=== PATIENT | female | born 1975 | race Caucasian/White ===

== ENCOUNTER → 2020-11-20 09:23 | Outpatient (BNVA) | payer MEDICARE, MEDICAID, SELFPAY | PROVIDERS: Visit Provider Specialist | DX: M25.539 Pain in unspecified wrist (principal); S52.591A Other fractures of lower end of right radius, initial encounter for closed fracture; S52.611A Displaced fracture of right ulna styloid process, initial encounter for closed fracture; X58.XXXA Exposure to other specified factors, initial encounter | CPT/HCPCS: 73110; 87635 ==

== ENCOUNTER 2020-11-21 13:58 | Day surgery (SDC) | payer MEDICARE, MEDICAID, SELFPAY ==
[2020-11-20 15:17] VITALS: BMI 37.2
[2020-11-21] VITALS (7 sets, daily range): BP systolic 124–148; BP diastolic 75–88; PULSE 69–103; RESP 16–24; TEMP 36.5–36.6; O2SAT 94–97
--- NOTE | 2020-11-21 | SCC_ITS ---
Procedure Done: Open reduction internal fixation right comminuted distal radius fracture with DBM Plus Putty with cancellous bone 67.0 seconds of fluoroscopic guidance, for a cumulative dose of 1.27 mGy, was provided to Dr. Ortega by the radiology department. C-arm images of the RIGHT wrist were saved for the patient's permanent record. [facility]
--- NOTE | 2020-11-21 14:37 | ANES.PREANE2 ---
Pre-Anesthetic Assessment Pre-Anesthetic Assessment: Height/Weight: Height 1.6 m Weight 95.254 kg Preop Diagnosis: Comminuted right distal radius fracture Proposed Procedure: Operation Date: 11/21/20 15:35 Proposed Procedures p ORIF Distal radius with bone grafting S52.509A(Right) - Radha Ortega MD Familial anesthetic complications: None Was Beta Michelle taken within 24 hours: N/A Was Clonidine taken within 24 hours: N/A Last intake: pop-tart at 0700 Social: Social History: No alcohol and No tobacco Comment: former smoker and alchoholic Exam: Pre-Anes Outpt Exam: alert, oriented x 3, clear to auscultation bilaterally and regular rate & rhythm Airway: Cervical ROM: WNL MP: 4 Dentition: False Pulmonary: Pulmonary: Asthma Metabolic: Metabolic: Morbid obesity Musc/skel: Comments: chronic inflammatory demyelinating polyneuropathy - leads to balance issues and numbness and tingling in extremities. Patient was educated that peripheral nerve block in this setting would be associated with higher risk than baseline population of nerve damage. Patient would still like to proceed with nerve block. Anesthetic Plan: ASA status: 3 Anesthesia: General and Regional (specify below) Risk of > 500 ml blood loss (7ml/kg in children): No PFSH Anesthesia PFSH: Social History Smoking and tobacco status: former smoker Second hand smoke exposure: No Alcohol intake: former Data Anesthesia Cardiac Studies: No Data to Display
--- NOTE | 2020-11-21 14:58 | P.HPUD_ITS ---
Surgery/Procedure H&P Update DATE OF PROCEDURE: November 21, 2020 DATE H&P PERFORMED: 11/20/20 H&P UPDATE INFORMATION: I have reviewed H&P completed within last 30 days, I have examined patient prior to procedure, No changes to prior documentation and H&P is in [facility] EMR on date indicated PREOP DIAGNOSIS: Comminuted right distal radius fracture PLANNED PROCEDURE: Operation Date: 11/21/20 15:35 Proposed Procedures p ORIF Distal radius with bone grafting S52.509A(Right) - Radha Ortega MD Related Problem List Diagnoses (1) Closed fracture of distal end of left radius with ulna: Qualifiers: Encounter type: initial encounter Qualified Code(s): S52.502A - Unspecified fracture of the lower end of left radius, initial encounter for closed fracture; S52.602A - Unspecified fracture of lower end of left ulna, initial encounter for closed fracture
[2020-11-21] MEDS: acetaminophen 1,000 MG/100 ML PIGGYBACK 400 MG IV (15:20)
[2020-11-21] MEDS: sodium chloride 0.9% 1,000 ML 30 ML IV (15:25)
--- NOTE | 2020-11-21 15:50 | ANES.PROC ---
Anesthesia Procedures Procedure/Date: 11/21/20 Nerve Block ^: Nerve Block 1: Main Anesthesia: general anesthesia Time Out Performed: Yes Consent: requested by attending/covering physician, from patient, risks and benefits reviewed and patient agrees to proceed Nerve block location: axillary (R + musculocutaneous) Anesthesia monitors applied: pulse oximetry, EKG, BP cuff and oxygen Nerve block position: supine Anesthetic Used: ropivicaine 0.5% and with decadron (4 mg) Amount of anesthesia used (mL): 20 Ultrasound used to: recognize landmarks and visualize and ID brachial plexus Nerve Stimulator Used?: No Interscalene/Femoral BLK: 2 stimuplex 22 g needle used for position and inplane approach, visualize local anesthetic spread and no vascular puncture identified Injection: neg aspiration of heme Patient Tolerated Procedure: well and no complications Complications: none Additional Comments: Patient experienced no paresthesia during nerve block, local pressure at injection site was experienced intermittently, tolerable and minimal discomfort
[2020-11-21 15:57] LABS: OR HCG Qualitative Urine Negative (Negative)
[2020-11-21 16:01] LABS: Basophils % 0.3 %; Eosinophils # 0.1 10^3/uL (0.0-0.8); Eosinophils % 2.5 %; Hematocrit 34.7 % (37.0-47.0); Hemoglobin 10.6 g/dL (11.5-15.3); Lymphocytes # 1.3 10^3/uL (0.8-4.8); Lymphocytes % 37.2 %; Mean Corpuscular HGB Conc 30.5 g/dL (30.0-36.0); Mean Corpuscular Volume 81.8 fL (81-99); Mean Platelet Volume 12.2 fL (7.4-10.4); Monocytes # 0.4 10^3/uL (0.2-0.9); Monocytes % 11.2 %; Neutrophils # 1.75 10^3/uL (1.8-7.7); Neutrophils % 48.8 %; Nucleated Red Blood Cells % 0 %; Platelet Count 145 10^3/cmm (130-400); Red Blood Count 4.24 10^6/uL (4.1-5.3); Red Cell Distribution Width 18.8 % (12.1-15.1); White Blood Count 3.6 10^3/uL (4.0-10.0)
[2020-11-21] MEDS: CELEcoxib 200 mg Capsule 400 MG PO (16:01)
[2020-11-21 16:36] LABS: Alanine Aminotransferase 23 U/L (0-33); Albumin Level 3.9 g/dL (3.5-5.2); Alkaline Phosphatase 89 IU/L (35-105); Blood Urea Nitrogen 5 mg/dL (6-20); Calcium 8.4 mg/dL (8.5-10.5); Carbon Dioxide 28 mmol/L (22-29); Chloride 103 mmol/L (98-107); Globulin 2.7 g/dL (1.3-4.6); Glomerular Filtration Rate 171.1 mL/min (90-130); Glucose 80 mg/dL (65-115); Osmolality Calculated 288 mOsm/kg (285-295); Sodium 141 mmol/L (136-145); Total Bilirubin 0.6 mg/dL (0.15-1.2); Total Protein 6.6 g/dL (6.6-8.7)
[2020-11-21 16:46] LABS: Anion Gap 13.5 (5-19); Aspartate Amino Transferase 50 U/L (0-32); Potassium 3.5 mmol/L (3.5-5.1)
[2020-11-21] MEDS: ceFAZolin 1,000 mg SDV 1000 MG (20:26)
--- NOTE | 2020-11-21 21:11 | P.OP_ITS ---
Operative Report Date of procedure: November 21, 2020 Pre-op Diagnosis: Comminuted right distal radius fracture Post-op diagnosis: same Post-op Findings: Osteopenic bone. Comminuted fracture. Bone defect secondary to impaction Procedure Done: Open reduction internal fixation right comminuted distal radius fracture with DBM Plus Putty with cancellous bone Implants: Mark extra short narrow 3-hole volar radius plate Specimens removed/disposition: None Pathology: none sent Surgeon: Radha Ortega Clinical Document Improvement Educator: [facility] operating room technicians Anesthesia: General (With LMA and regional block, ASA 3) Estimated blood loss (mL): 5 Tourniquet time (min): 59 Tourniquet time: At 250 mmHg IV fluids (mL): 1,100 Urine output (mL): 0 Urine output: No [place] Complications: None Findings: Significant impaction with bone loss distal radius and osteopenic bone Condition: stable Disposition: PACU (Then discharged to home through same day surgery) Brief History: This 45-year-old woman presented after a fall which resulted in a comminuted, impacted, shortened right distal radius fracture. After discussion in the office, recommendation was made to proceed with open reduction internal fi xation. The patient was advised that she would likely need supplemental bone graft secondary to the significant impaction and effective bone loss caused by this. The patient was in agreement. Questions were answered. Consents were signed. Procedure: Patient was seen in the preoperative holding area and rightt arm was marked. Patient was brought to the operating theater and placed on the operating room table. After undergoing adequate general anesthesia per LMA with supplemental regional block, ASA 3, the patient's right upper extremity was prepped and draped in usual fashion utilizing DuraPrep. The arm was draped free. Fluoroscopy was used throughout the surgical procedure. A tourniquet was placed high on the left upper extremity. The arm was exsanguinated. And the tourniquet was elevated to 250 mmHg and total tourniquet time was 59 minutes. A surgical pause was performed. At the time of the surgical pause we identified the site and side of surgery as well as the patient's identity and availability of equipment. We also confirmed appropriate administration of IV antibiotics, Ancef 2 g. Following the above, an incision was made centering over the patient's distal radius fracture with visualization accomplished on fluoroscopy. The incision was continued proximally and distally as necessarily to allow access to the fractur e. Soft tissues were damaged at the time of the fracture, and blunt dissection was used to dissect down onto the radius. Under fluoroscopic guidance, we were able to reduce the fracture anatomically. There was noted to be a large bone defect secondary to the impaction. This was filled with DBM plus putty with cancellous chips. The plate had been chosen preoperatively with visualization of the fracture and the plate. The plate chosen was a 3 hole (extra short) narrow volar distal radius plate. We used a combination of locking and one screw. Fracture reduction and screw lengths were evaluated utilizing fluoroscopy. The fracture essentially was held anatomically with this plate. After irrigation of the wound, attention was directed to closure. Closure was accomplished with 2-0 Monocryl in the subcutaneous tissues. 3-0 Monocryl was used to close the skin. This was followed by Dermabond and Steri-Strips. The patient was then placed in a volar splint. This was wrapped in place with an Robert wrap. The tourniquet was released after 59 minutes at 250 mmHg. The patient will be discharged home to follow-up with me in the office. The procedure was well tolerated without complication. There were no specimens. Associated Problem List Diagnoses (1) Closed fracture of distal end of left radius with ulna: Qualifiers: Encounter type: initial encounter Qualified Code(s): S52.502A - Unspecified fracture of the lower end of left radius, initial encounter for closed fracture; S52.602A - Unspecified fracture of lower end of left ulna, initial encounter for closed fracture
--- NOTE | 2020-11-21 21:18 | XR_ITS ---
WS: [id number] Exam: XR wrist RT min 3V* [id number] Date/Time of Exam: 11/21/2020 9:18 PM Reason For Exam: ORIF RIGHT WRIST Intraoperative C-arm images of the right wrist in the AP and lateral views are submitted for evaluati on. There is volar plate and screw fixation involving a fracture of the distal radius. The fracture is st abilized in excellent alignment for healing. A ulnar styloid fractures again noted. XR/XR wrist RT min 3V* [id number] IMPRESSION: 1. ORIF involving a fracture of the distal radius in excellent position for katlin villavicencio.
--- NOTE | 2020-11-21 21:39 | P.PCN_ITS ---
PACU note PACU note: VSS, Good respiratory effort, report to CONSERVATION OF RESOURCES COMMISSIONER Post-Anesthesia Exam: awake
--- NOTE | 2020-11-21 21:39 | PM.PACU ---
PACU note PACU note: VSS, Good respiratory effort, report to LITIGATION ATTORNEY ASSOCIATE Post-Anesthesia Exam: awake
--- NOTE | 2020-11-21 21:40 | ANE.PACU2 ---
Inpatient post-anesthesia follow up: Airway intact: Yes Vital signs: Temperature 98 F Pulse Rate 102 Respiratory Rate 17 Blood Pressure 146/88 Pulse Oximetry 94 Oxygen Delivery Me thod Simple Mask Oxygen Flow Rate 8 Fraction of Inspir ed Oxygen Hydration adequate: Yes Nausea and vomiting: No Pain level: 2 Mental status: Baseline
== END 2020-11-21 22:22 | disposition home or self-care (01) ==
PROVIDERS: Anesthesiology; Visit Provider Specialist
PROC: (CPT 25609; principal; 2020-11-21 15:15)
DX: S52.571A Other intraarticular fracture of lower end of right radius, initial encounter for closed fracture (principal); W18.30XA Fall on same level, unspecified, initial encounter; E66.01 Morbid (severe) obesity due to excess calories; Z68.37 Body mass index [BMI] 37.0-37.9, adult; Z87.891 Personal history of nicotine dependence
CPT/HCPCS: 25609; 36415; 64417; 73100; 73110; 76000; 76942; 80053; 84703; 85025; 96365; C1713; J0690; J1100; J2704; J2795; J3010; J7030

== ENCOUNTER → 2020-11-29 09:02 | Outpatient (BNVA) | payer MEDICARE, MEDICAID, SELFPAY | PROVIDERS: PCP Family Medicine; Visit Provider Specialist | DX: S52.502A Unspecified fracture of the lower end of left radius, initial encounter for closed fracture (principal); S52.602A Unspecified fracture of lower end of left ulna, initial encounter for closed fracture; Z46.89 Encounter for fitting and adjustment of other specified devices; S52.591D Other fractures of lower end of right radius, subsequent encounter for closed fracture with routine healing; X58.XXXD Exposure to other specified factors, subsequent encounter | CPT/HCPCS: 73110; 97760; L3982 ==

== ENCOUNTER 2020-11-29 10:33 | Outpatient (CLI) | payer MEDICARE, MEDICAID, SELFPAY | END 2020-11-29 10:34 | disposition home or self-care (01) | LOC: SPT 10:35 | PROVIDERS: PCP Family Medicine; Visit Provider Specialist | DX: Z46.89 Encounter for fitting and adjustment of other specified devices (principal); S52.591D Other fractures of lower end of right radius, subsequent encounter for closed fracture with routine healing; X58.XXXD Exposure to other specified factors, subsequent encounter | CPT/HCPCS: 97760; L3982 ==

== ENCOUNTER 2020-12-14 10:48 | Emergency (ER) | payer MEDICARE, MEDICAID, SELFPAY ==
[2020-12-14] VITALS (7 sets, daily range): BP systolic 129–142; BP diastolic 76–90; PULSE 74–83; RESP 12–19; TEMP 36.3; O2SAT 92–93; BMI 38.9
--- NOTE | 2020-12-14 11:17 | XRR_ITS ---
PROCEDURE INFORMATION: Exam: XR Chest Exam date and time: 12/14/2020 11:26 AM Age: 45 years old Clinical indication: Other: Reduced breath sounds; Patient HX: AMS, no chest complaints per patient TECHNIQUE: Imaging protocol: XR of the chest. Views: 1 view. COMPARISON: No relevant prior studies available. FINDINGS: Lungs: Unremarkable. No consolidation. Pleural spaces: Unremarkable. No pleural effusion. No pneumothorax. Heart/Mediastinum: Unremarkable. No cardiomegaly. Bones/joints: Unremarkable. XR/XR chest 1V portable [id number] IMPRESSION: No acute findings.
--- NOTE | 2020-12-14 11:25 | ECG_ITS ---
[facility] Test Date: 2020-12-14 Pat Name: Esha Kruger Department: Room: Gender: Female Reading Professor: : 1975 Requested By: Nathen Lebron Order Number: [id number] Yamini MD: Morenita Benites M.D. Measurements Intervals [place] Rate: 78 P: 62 AL: 176 QRS: 15 QRSD: 90 T: 60 QT: 417 QTc: 478 Interpretive Statements SINUS RHYTHM LOW QRS VOLTAGE IN PRECORDIAL LEADS [QRS DEFLECTION < 1.0 mV IN CHEST LEADS] No previous ECG available for comparison Electronically Signed On 12-14-2020 23:47:18 CDT by Morenita Benites M.D. [email or web address]
[2020-12-14] MEDS: sodium chloride 0.9% 1,000 ML 999 ML IV (11:36)
[2020-12-14 11:40] LABS: Basophils % 0.6 %; Eosinophils % 1.2 %; Hematocrit 36.1 % (37.0-47.0); Hemoglobin 10.8 g/dL (11.5-15.3); Lymphocytes % 28.8 %; Mean Corpuscular HGB Conc 29.9 g/dL (30.0-36.0); Mean Corpuscular Hemoglobin 24.4 pg (28.0-34.0); Mean Corpuscular Volume 81.7 fL (81-99); Mean Platelet Volume 11.6 fL (7.4-10.4); Monocytes # 0.3 10^3/uL (0.2-0.9); Monocytes % 8.2 %; Neutrophils # 2.07 10^3/uL (1.8-7.7); Neutrophils % 60.9 %; Nucleated Red Blood Cells % 0 %; Platelet Count 156 10^3/cmm (130-400); Red Blood Count 4.42 10^6/uL (4.1-5.3); Red Cell Distribution Width 19.5 % (12.1-15.1); White Blood Count 3.4 10^3/uL (4.0-10.0)
[2020-12-14 11:44] LABS: HCG, Serum Qual Negative (Negative)
[2020-12-14 11:54] LABS: Troponin(5th) Baseline 11 ng/L (0-10)
[2020-12-14 11:56] LABS: Alanine Aminotransferase 19 U/L (0-33); Albumin Level 3.4 g/dL (3.5-5.2); Alcohol Level 242 mg/dL (0-10); Alkaline Phosphatase 126 IU/L (35-105); Anion Gap 15.8 (5-19); Aspartate Amino Transferase 39 U/L (0-32); Blood Urea Nitrogen 5 mg/dL (6-20); Calcium 6.2 mg/dL (8.5-10.5); Carbon Dioxide 20 mmol/L (22-29); Chloride 116 mmol/L (98-107); Globulin 2.5 g/dL (1.3-4.6); Glomerular Filtration Rate 238.5 mL/min (90-130); Glucose 85 mg/dL (65-115); Lipase 41 U/L (13-60); Osmolality Calculated 305 mOsm/kg (285-295); Salicylate 1.1 mg/dL (3-10); Sodium 149 mmol/L (136-145); Total Bilirubin 0.3 mg/dL (0.15-1.2); Total Protein 5.9 g/dL (6.6-8.7)
[2020-12-14 12:06] LABS: Acetaminophen < 5.0 ug/mL (10-30); Potassium 2.8 mmol/L (3.5-5.1)
[2020-12-14] MEDS: lidocaine 1% 5 ML in potassium chloride premix 100 ML 25 ML IV (12:36)
[2020-12-14 13:33] LABS: Add Urine Microscopic? NO; Charge for UA Resulting for Rev
[2020-12-14 13:44] LABS: Bilirubin Urine Neg (Negative); Blood Urine Neg (Negative); Glucose Urine UA Norm (Normal); Ketones Urine Negative (Negative); Leukocyte Esterase Urine Negative (Negative); Nitrate Urine Negative (Negative); Protein Urine Neg (Negative); Urine Appearance Clear (CLEAR); Urine Color Yellow (Yellow); Urobilinogen Urine Norm (Negative); pH Urine 5 (5-7)
[2020-12-14 13:51] LABS: Amphetamines Screen Urine Negative (Negative); Barbiturates Screen Urine Negative (Negative); Benzodiazepines Screen Urine Negative (Negative); Cocaine Screen Urine Negative (Negative); Opiate Screen Urine Negative (Negative); PCP Screen Urine Negative (Negative); THC Screen Urine Negative (Negative)
--- NOTE | 2020-12-14 14:41 | ED_ITS ---
HPI - Alcohol General: Chief Complaint: Alcohol Stated Complaint: INTOXICATION/ LETHARGIC Time Seen by Provider: 12/14/20 11:06 History of Present Illness: HPI narrative: The patient is a 45-year-old female with chronic alcoholic who comes to the ER after her father found her passed out in a bathroom. She says this is incorrect he found her in bed. She says that he told her to come to the ER because she had drank half a 1 L bottle of mouthwash. She admits to drinking the mouthwash because she ran out of vodka. She says she has been drinking it over the past couple days. I discussed with her that she should not do that and is potentially lethal. She understands. She says she was not trying to harm herself in any way and denies suicidal and homicidal ideations. She is also not psychotic. She denies tremors and seizures history when she is not drinking. Denies any injuries or pain. MD complaint: alcohol intoxication Chronic alcohol use: Yes Previous visits for alcohol intoxication: No Recent trauma: No Associated symptoms: Reports no associated symptoms; Deny abdominal pain or depression Treatments prior to arrival: none Review of Systems General: Reports: 10 or more systems reviewed and unremarkable except in HPI and below Const: Denies: fatigue Eyes: Denies: change in vision, blurry vision or eye redness ENMT: Denies: throat pain, swelling of lips/tongue, ear or mastoid pain or nasal congestion Card: Denies: chest pain, palpitations, irregular heart rhythm, edema, dyspnea on exertion or orthopnea Resp: Denies: dyspnea, productive cough or non-productive cough GI: Denies: abdominal pain, diarrhea or GI cramping : Denies: flank pain, difficulty voiding, urinary frequency or urinary urgency Musc: Denies: neck pain, back pain, extremity pain, joint pain, joint redness, limited range of motion or muscle weakness Skin/Breast: Denies: rash, pruritus, erythema, skin pain or skin tenderness Neuro: Denies: headache(s), numbness in extremities, weakness in extremities, sensory changes, difficulty walking, dizziness, confusion or Slurred speech present Psych: Denies: anxiety or depression Endo: Denies: polyuria All/Imm: Denies: urticaria, throat swelling or tongue swelling PFSH ED PFSH: Social History Smoking and tobacco status: former smoker Second hand smoke exposure: No Alcohol intake: former Physical Exam Const: COMMON NORMALS: no acute distress, average body habitus, patient oriented x3, no limitations, healthy appearing, alert and well nourished GENERAL APPEARANCE: cooperative, comfortable, well kempt and well developed ORIENTATION/CONSCIOUSNESS: Yes awake, Yes oriented to person, Yes oriented to place and Yes oriented to time HENMT: COMMON NORMALS: normocephalic, external ears normal and Normal external nose present HEAD & SCALP: normal to inspection and normocephalic NOSE: Normal external nose present EXTERNAL EAR: Yes external ears normal MOUTH: Normal oral and palatal mucosa present THROAT: posterior oropharynx normal Eye: COMMON NORMALS: Equal, round and reactive pupils present and EOMs intact bilaterally GENERAL EYE: appearance normal, both eyes and all related structures PUPIL: Yes Equal, round and reactive pupils present Neck/C-Spine: COMMON NORMALS: full ROM, no lymphadenopathy, no meningeal signs and no JVD GENERAL: Yes normal visual inspection Lymph: LYMPHATIC: no lymphadenopathy noted Chest: COMMONS NORMALS: normal inspection of the chest and normal palpation of entire chest wall Resp: COMMON NORMALS: normal respiratory effort, No retractions, No use of accessory muscles, clear to auscultation bilaterally and percussion normal EFFORT & INSPECTION: Yes able to speak in complete sentences AUSCULTATION: clear to auscultation bilaterally PERCUSSION: percussion normal Cardio: COMMON NORMALS: no JVD, regular rate, regular rhythm, S1 normal heart sound present, S2 normal heart sound present and Peripheral pulses 2+ throughout RATE: regular rate RHYTHM: regular rhythm HEART SOUNDS: S1 normal heart sound present and S2 normal heart sound present PERIPHERAL PULSES: Peripheral pulses 2+ throughout GI: COMMON NORMALS: Normal to inspection, nondistended, normoactive bowel sounds present, Soft to palpation, non-tender and no masses INSPECTION: Yes normal to inspection PALPATION: Yes Soft to palpation : COMMON NORMALS: Yes no CVA tenderness BLADDER/KIDNEY EXAM: Yes no CVA tenderness Back/Pelvis: COMMON NORMALS: no CVA tenderness, thoracic and lumbar spine normal to inspection, no thoracic nor lumbar tenderness and thoraco-lumbar ROM normal Extremity: COMMON NORMALS: normal to inspection, full ROM, capillary refill normal, no joint enlargement and no pedal edema GENERAL: Yes normal exam except as noted Neuro: COMMON NORMALS: patient oriented x3, CN's II-XII intact bilaterally, moves all extremities, no focal motor deficits, no sensory deficits noted and gait normal SENSORIUM/ORIENTATION: Yes alert, Yes oriented to person, Yes oriented to place and Yes oriented to time MENINGEAL SIGNS: Yes no meningeal signs Psych: COMMON NORMALS: mental status grossly normal, Normal thought process present, cooperative, normal affect and speech normal APPEARANCE: Yes well kempt ATTITUDE: Yes calm SPEECH: Yes normal speech THOUGHT PROCESS: Normal thought process present Skin: COMMON NORMALS: no rashes or lesions noted GENERAL SKIN EXAM: no rashes or lesions noted Course Vital Signs: Vital signs: Vital Signs Temperature 97.4 F L 12/14/20 10:51 Pulse Rate 82 12/14/20 17:54 Respiratory Rate 19 H 12/14/20 17:54 Blood Pressure 129/86 12/14/20 17:54 Pulse Oximetry 93 12/14/20 17:54 MDM - Alcohol MDM Narrative: Medical decision making narrative: The patient came to the ER intoxicated on alcohol. She says she was in her bed when her father found her, not on the bathroom floor. She admits to drinking mouthwash half a 1 L bottle over the past couple days as she has ran out of vodka. I discussed with her that this is potentially toxic and could kill her. I recommended she never drink mouthwash again and cut back on the alcohol with eventual ceasing of the alcohol as well as seeking alcohol rehab. I also discussed with her her electrolyte abnormalities of low potassium, high sodium, and low white blood cell count. I recommended she get these rechecked in a few days at primary care doctor's office and seek alcohol rehab. ER with worsening symptoms at any time Lab Data: Labs: Lab Results 12/14/20 12/14/20 12/14/20 Range/Units 11:10 11:10 11:10 WBC 3.4 L (4.0-10.0) 10^3/ uL RBC 4.42 (4.1-5.3) 10^6/u L Hgb 10.8 L (11.5-15.3) g/dL Hct 36.1 L (37.0-47.0) % MCV 81.7 (81-99) fL MCH 24.4 L (28.0-34.0) pg MCHC 29.9 L (30.0-36.0) g/dL RDW 19.5 H (12.1-15.1) % Plt Count 156 (130-400) 10^3/c mm MPV 11.6 H (7.4-10.4) fL Neut % (Auto) 60.9 % Lymph % (Auto) 28.8 % [place] % (Auto) 8.2 % Eos % (Auto) 1.2 % Baso % (Auto) 0.6 % Neut # (Auto) 2.07 (1.8-7.7) 10^3/u L Lymph # (Auto) 1.0 (0.8-4.8) 10^3/u L [place] # (Auto) 0.3 (0.2-0.9) 10^3/u L Eos # (Auto) 0.0 (0.0-0.8) 10^3/u L Baso # (Auto) 0.0 (0.0-0.1) 10^3/u L Nucleated RBC % (a uto) 0 % Nucleated RBCs # 0.0 /100WBC Sodium 149 H (136-145) mmol/L Potassium 2.8 L* (3.5-5.1) mmol/L Chloride 116 H (98-107) mmol/L Carbon Dioxide 20 L (22-29) mmol/L Anion Gap 15.8 (5-19) BUN 5 L (6-20) mg/dL Creatinine 0.3 L (0.5-0.9) mg/dL GFR Calculation 238.5 H (90-130) mL/min Glucose 85 (65-115) mg/dL Calculated Osmolal ity 305 H (285-295) mOsm/k g Calcium 6.2 L (8.5-10.5) mg/dL Total Bilirubin 0.3 (0.15-1.2) mg/dL AST 39 H (0-32) U/L ALT 19 (0-33) U/L Alkaline Phosphata se 126 H (35-105) IU/L Troponin T Baselin e (0-10) ng/L Total Protein 5.9 L (6.6-8.7) g/dL Albumin 3.4 L (3.5-5.2) g/dL Globulin 2.5 (1.3-4.6) g/dL Lipase 41 (13-60) U/L HCG, Qual Negative (Negative) Urine Color (Yellow) Urine Appearance (CLEAR) Urine pH (5-7) Ur Specific Gravit y (1.005-1.030) Urine Protein (Negative) Urine Glucose (UA) (Normal) Urine Ketones (Negative) Urine Blood (Negative) Urine Nitrate (Negative) Urine Bilirubin (Negative) Urine Urobilinogen (Negative) mg/dL Ur Leukocyte Isamar ase (Negative) Salicylates 1.1 L (3-10) mg/dL Urine Opiates Scre en (Negative) ng/mL Acetaminophen < 5.0 L (10-30) ug/mL Ur Barbiturates Sc reen (Negative) ng/mL Ur Phencyclidine S crn (Negative) ng/mL Ur Amphetamines Sc reen (Negative) ng/mL U Benzodiazepines Scrn (Negative) ng/mL Urine Cocaine Scre en (Negative) ng/mL U Marijuana (THC) Screen (Negative) ng/mL Ethyl Alcohol 242 H (0-10) mg/dL 12/14/20 12/14/20 12/14/20 Range/Units 11:10 13:30 13:30 WBC (4.0-10.0) 10^3/ uL RBC (4.1-5.3) 10^6/u L Hgb (11.5-15.3) g/dL Hct (37.0-47.0) % MCV (81-99) fL MCH (28.0-34.0) pg MCHC (30.0-36.0) g/dL RDW (12.1-15.1) % Plt Count (130-400) 10^3/c mm MPV (7.4-10.4) fL Neut % (Auto) % Lymph % (Auto) % [place] % (Auto) % Eos % (Auto) % Baso % (Auto) % Neut # (Auto) (1.8-7.7) 10^3/u L Lymph # (Auto) (0.8-4.8) 10^3/u L [place] # (Auto) (0.2-0.9) 10^3/u L Eos # (Auto) (0.0-0.8) 10^3/u L Baso # (Auto) (0.0-0.1) 10^3/u L Nucleated RBC % (a uto) % Nucleated RBCs # /100WBC Sodium (136-145) mmol/L Potassium (3.5-5.1) mmol/L Chloride (98-107) mmol/L Carbon Dioxide (22-29) mmol/L Anion Gap (5-19) BUN (6-20) mg/dL Creatinine (0.5-0.9) mg/dL GFR Calculation (90-130) mL/min Glucose (65-115) mg/dL Calculated Osmolal ity (285-295) mOsm/k g Calcium (8.5-10.5) mg/dL Total Bilirubin (0.15-1.2) mg/dL AST (0-32) U/L ALT (0-33) U/L Alkaline Phosphata se (35-105) IU/L Troponin T Baselin e 11 H (0-10) ng/L Total Protein (6.6-8.7) g/dL Albumin (3.5-5.2) g/dL Globulin (1.3-4.6) g/dL Lipase (13-60) U/L HCG, Qual (Negative) Urine Color Yellow (Yellow) Urine Appearance Clear (CLEAR) Urine pH 5 (5-7) Ur Specific Gravit y 1.020 (1.005-1.030) Urine Protein Neg (Negative) Urine Glucose (UA) Norm (Normal) Urine Ketones Negative (Negative) Urine Blood Neg (Negative) Urine Nitrate Negative (Negative) Urine Bilirubin Neg (Negative) Urine Urobilinogen Norm (Negative) mg/dL Ur Leukocyte Isamar ase Negative (Negative) Salicylates (3-10) mg/dL Urine Opiates Scre en Negative (Negative) ng/mL Acetaminophen (10-30) ug/mL Ur Barbiturates Sc reen Negative (Negative) ng/mL Ur Phencyclidine S crn Negative (Negative) ng/mL Ur Amphetamines Sc reen Negative (Negative) ng/mL U Benzodiazepines Scrn Negative (Negative) ng/mL Urine Cocaine Scre en Negative (Negative) ng/mL U Marijuana (THC) Screen Negative (Negative) ng/mL Ethyl Alcohol (0-10) mg/dL Discharge Plan Discharge Patient Disposition: Home Clinical Impression: Alcoholic intoxication Condition: Stable Prescriptions: New [place]lor-Con M20 20 mEq tablet,ER particles/crystals 20 meq PO QID Qty: 4 RF: 0 No Action pantoprazole 40 mg tablet,delayed release (DR/EC) 40 mg PO QAM RF: 0 furosemide 20 mg tablet 20 mg PO DAILY RF: 0 spironolactone 25 mg tablet 25 mg PO BID RF: 0 folic acid 1 mg tablet 1 mg PO QAM RF: 0 tramadol 50 mg tablet 50 - 100 mg PO Q4H PRN (Reason: Pain) RF: 0 diphenhydramine HCl [Banophen] 25 mg capsule 25 mg PO Q6H PRN (Reason: Allergy Symptoms) RF: 0 alprazolam [Xanax] 0.5 mg tablet 0.5 mg PO Q12H PRN (Reason: Anxiety) RF: 0 albuterol sulfate [ProAir HFA] 90 mcg/actuation HFA aerosol inhaler 2 puff inhalation Q4H PRN (Reason: Shortness Of Breath) RF: 0 mometasone [Nasonex] 50 mcg/actuation spray,non-aerosol 2 spray intranasal DAILY PRN (Reason: Allergy Symptoms) RF: 0 prenat.vits,navdeep,aff-madv-bgozv Tablet 1 tab PO DAILY RF: 0 biotin 10,000 mcg capsule 10,000 mcg PO DAILY RF: 0 escitalopram oxalate [Lexapro] 10 mg tablet 10 mg PO DAILY RF: 0 (DME) FAST FORM COCK UP SPLINT See Rx Instructions .Route .MEDSUPPLY Qty: 1 RF: 0 celecoxib [Celebrex] 200 mg capsule 200 mg PO DAILY Qty: 30 RF: 0 Lasix 40 mg Tablet 40 mg PO BID RF: 0 Claritin 10 mg Tablet 10 mg PO DAILY RF: 0 Zofran 8 mg Tablet 8 mg PO Q8H PRN (Reason: Nausea And Vomiting) RF: 0 Compazine 10 mg Tablet 10 mg PO Q6H PRN (Reason: Nausea And Vomiting) RF: 0 baclofen 10 mg Tablet 10 mg PO TID PRN (Reason: Muscle Spasm) RF: 0 Nexium 40 mg Capsule,Delayed Release(Dr/Ec) 40 mg PO DAILY RF: 0 promethazine 25 mg Tablet 25 mg PO Q6H PRN (Reason: Nausea And Vomiting) RF: 0 Ambien 10 mg Tablet 10 mg PO BEDTIME PRN (Reason: Sleep) RF: 0 Lyrica 300 mg Capsule 300 mg PO BID RF: 0 Discharge Orders: Discharge ED (Routine); Ordered 12/14/20 Ordered By: Nathen Lebron Referrals: Kalpesh Young MD [Primary Care Provider] - Discharge Diet: Advance as tolerated Discharge Activity: Resume usual activity Patient Instructions: Abuse of Alcohol (ED), Opioid Safety Activity Restrictions/Additional Instructions: Please abstain from drinking mouthwash ever again as it is toxic and could potentially kill you. Also cut back on your alcohol intake in general and eventually cease drinking alcohol entirely. Return to the ER with worsening symptoms otherwise follow-up with a primary care physician and seek rehab treatment for alcoholism. I have placed a case management referral to help you get both of these appointments. They should be calling you tomorrow to help schedule them. Drinking has also affected your electrolytes. Your sodium is high, potassium is low and white blood cell count is low. Please get these redrawn at your primary care appointment within the next week. Return to the ER with worsening symptoms. I have attached a prescription for potassium tablets that you can take tomorrow to help correct your potassium. 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
--- NOTE | 2020-12-14 15:10 | PC.PHAR ---
pt states she takes care of her own medications-pt brought in medication bottles-see all pharmacy comments on each rx-pt brought in bottles of out dated medications and states she takes them-pt brought in promethazine not in the pts name-name on bottle was arianna jaime
--- NOTE | 2020-12-15 14:18 | DCPLANNER ---
mds manager had message to speak with patient about a follow up appointment with primary care and alcohol rehab. mds manager called phone number [phone], unable to speak with anyone at this time, and unable to leave a voicemail for patient.
== END 2020-12-14 17:55 | disposition home or self-care (01) ==
PROVIDERS: Emergency Provider Family Medicine; PCP Family Medicine
DX: F10.129 Alcohol abuse with intoxication, unspecified (principal); Y90.8 Blood alcohol level of 240 mg/100 ml or more; Z87.891 Personal history of nicotine dependence; Z79.899 Other long term (current) drug therapy
CPT/HCPCS: 71045; 80053; 80306; 80307; 81003; 83690; 84484; 84703; 85025; 93005; 96365; 96366; 99284; J3480; J7030

== ENCOUNTER → 2020-12-20 09:13 | Outpatient (BNVA) | payer MEDICARE, MEDICAID, SELFPAY | PROVIDERS: PCP Family Medicine; Visit Provider Specialist | DX: S52.502A Unspecified fracture of the lower end of left radius, initial encounter for closed fracture (principal); S52.602A Unspecified fracture of lower end of left ulna, initial encounter for closed fracture; X58.XXXA Exposure to other specified factors, initial encounter | CPT/HCPCS: 73110 ==

== ENCOUNTER 2020-12-27 06:00 | Outpatient (RCR) | payer MEDICARE, MEDICAID, SELFPAY | END 2021-01-24 23:59 | disposition home or self-care (01) | LOC: MOT 06:00 | PROVIDERS: PCP Family Medicine; Referring Provider Specialist; Visit Provider Specialist | DX: Z47.89 Encounter for other orthopedic aftercare (principal) | CPT/HCPCS: 97110; 97140; 97166 ==

== ENCOUNTER → 2021-01-11 09:07 | Outpatient (BNVA) | payer MEDICARE, MEDICAID, SELFPAY | PROVIDERS: PCP Family Medicine; Visit Provider Specialist | DX: S52.502A Unspecified fracture of the lower end of left radius, initial encounter for closed fracture (principal); S52.602A Unspecified fracture of lower end of left ulna, initial encounter for closed fracture; X58.XXXA Exposure to other specified factors, initial encounter | CPT/HCPCS: 73110 ==

== ENCOUNTER 2021-01-25 06:00 | Outpatient (RCR) | payer MEDICARE, MEDICAID, SELFPAY | END 2021-02-24 23:59 | disposition home or self-care (01) | LOC: MOT 06:00 | PROVIDERS: PCP Family Medicine; Referring Provider Specialist; Visit Provider Specialist | DX: S52.501D Unspecified fracture of the lower end of right radius, subsequent encounter for closed fracture with routine healing (principal); X58.XXXD Exposure to other specified factors, subsequent encounter | CPT/HCPCS: 97018; 97110; 97140 ==

== ENCOUNTER 2021-10-22 13:00 | Outpatient (CLI) | payer MEDICARE, MEDICAID, SELFPAY ==
--- NOTE | 2021-10-22 13:11 | US_ITS ---
WS: [id number] THYROID ULTRASOUND HISTORY: ABNORMAL LAB TEST COMPARISON: None available. Right lobe: 1.4 cm x 1.7 cm x 4.4 cm (w x ap x l). Volume: 5.2 cm3. Normal size thyroid. No increased vascularity. There is a small subcentimeter nodule measuring 6 x 4 x 5 mm in the inferior pole. No suspicious calcification. Left lobe: 1.4 cm x 1.1 cm x 3.6 cm (w x ap x l). Volume: 2.9 cm3. Small thyroid. There are a few very small nodules scattered within the gland. These are all subcentim eter. Subcentimeter calcification measuring 4 x 3 x 5 mm in the superior LEFT thyroid. Isthmus: 0.3 cm. US/US thyroid [id number] IMPRESSION: No dominant or suspicious nodules for which follow-up is recommended.
== END 2021-10-22 13:01 | disposition home or self-care (01) ==
PROVIDERS: PCP Family Medicine; Visit Provider Family Medicine
DX: R79.89 Other specified abnormal findings of blood chemistry (principal)
CPT/HCPCS: 76536

== ENCOUNTER → 2021-11-15 08:45 | Outpatient (BNVA) | payer MEDICARE, MEDICAID, SELFPAY | PROVIDERS: PCP Family Medicine; Visit Provider Internal Medicine | DX: E04.2 Nontoxic multinodular goiter (principal); R94.6 Abnormal results of thyroid function studies; Z87.891 Personal history of nicotine dependence | CPT/HCPCS: 99204 ==

== ENCOUNTER → 2022-01-16 08:43 | Outpatient (BNVA) | payer MEDICARE, MEDICAID, SELFPAY | PROVIDERS: PCP Family Medicine; Visit Provider Internal Medicine | DX: R94.6 Abnormal results of thyroid function studies (principal); E04.2 Nontoxic multinodular goiter; E66.9 Obesity, unspecified; Z68.41 Body mass index [BMI] 40.0-44.9, adult; Z87.891 Personal history of nicotine dependence | CPT/HCPCS: 99214 ==

== ENCOUNTER → 2022-05-09 13:20 | Outpatient (BNVA) | payer MEDICARE, MEDICAID, SELFPAY | PROVIDERS: PCP Family Medicine; Visit Provider Internal Medicine | DX: E04.2 Nontoxic multinodular goiter (principal); E66.9 Obesity, unspecified; E88.81 Metabolic syndrome and other insulin resistance; Z68.41 Body mass index [BMI] 40.0-44.9, adult | CPT/HCPCS: 99214 ==

== ENCOUNTER 2022-10-02 09:14 | Outpatient (CLI) | payer MEDICARE, MEDICAID, SELFPAY ==
--- NOTE | 2022-10-02 09:30 | US_ITS ---
WS: [id number] THYROID ULTRASOUND HISTORY: nodules COMPARISON: 10/22/2021 Right lobe: 1.3 cm x 1.2 cm x 4.0 cm (w x ap x l). Volume: 3.3 cm3. Small heterogeneous gland. Hypoechoic nodule which is nearly isoechoic to the adjacent gland is reide ntified measuring 5 x 4 x 5 mm. There is mild peripheral increased vascularity. No significant increa se in size or suspicious characteristics of this nodule. Left lobe: 1.4 cm x 1.0 cm x 3.6 cm (w x ap x l). Volume: 2.7 cm3. Normal size gland. Hypoechoic nodule measures 4 x 3 x 5 mm in the inferior pole. There are a few othe r scattered hypoechoic nodules which are much smaller. Coarse calcification in the superior LEFT thyr oid measures 4 x 3 x 5 mm without increase in size. No associated soft tissue component. Isthmus: 0.3 cm. US/US thyroid [id number] IMPRESSION: 1. No adverse change in appearance of the thyroid gland with bilateral subcent imeter nodules that were described on 10/22/2021. 2. Bilateral thyroid nodules. Recommend continued yearly follow-up.
== END 2022-10-02 09:15 | disposition home or self-care (01) ==
LOC: RAD 09:19
PROVIDERS: PCP Family Medicine; Visit Provider Internal Medicine
DX: E04.2 Nontoxic multinodular goiter (principal)
CPT/HCPCS: 76536

== ENCOUNTER → 2022-11-28 08:27 | Outpatient (BNVA) | payer MEDICARE, MEDICAID, SELFPAY | PROVIDERS: PCP Family Medicine; Visit Provider Internal Medicine | DX: E04.2 Nontoxic multinodular goiter (principal); E66.9 Obesity, unspecified; E88.81 Metabolic syndrome and other insulin resistance; Z68.41 Body mass index [BMI] 40.0-44.9, adult | CPT/HCPCS: 99214 ==

== ENCOUNTER → 2023-06-04 10:28 | Outpatient (BNVA) | payer MEDICARE, MEDICAID, SELFPAY | PROVIDERS: PCP Family Medicine; Visit Provider Internal Medicine | DX: E04.2 Nontoxic multinodular goiter (principal); E66.9 Obesity, unspecified; E11.9 Type 2 diabetes mellitus without complications; R94.6 Abnormal results of thyroid function studies; Z68.41 Body mass index [BMI] 40.0-44.9, adult; Z79.84 Long term (current) use of oral hypoglycemic drugs | CPT/HCPCS: 99214 ==

== ENCOUNTER 2023-09-29 09:43 | Outpatient (CLI) | payer MEDICARE, MEDICAID, SELFPAY ==
--- NOTE | 2023-09-29 10:00 | US_ITS ---
WS: [id number] ULTRASOUND THYROID TECHNIQUE: Ultrasound of the thyroid. CLINICAL INFORMATION: thyroid nodules COMPARISON: 10/02/2022 FINDINGS: Thyroid: Right and left thyroid lobes are normal in size and echotexture. Right thyroid lobe: 4.1 cm x 1.3 cm x 1.6 cm Small hypoechoic RIGHT inferior thyroid nodule measuring 6 x 5 x 6 mm unchanged compared to previous. Left thyroid lobe: 3.4 cm x 1.1 cm x 1.0 cm. Small calcified LEFT thyroid nodule in the mid thyroid measuring 4 x 3 x 5 mm unchanged. Hypoechoic LEFT mid thyroid nodule measuring 4.1 x 3.1mm unchanged. Isthmus: 0.5 mm. Cervical lymphadenopathy: None. IMPRESSION: 1. No significant changes compared to previous. 2. Stable bilateral subcentimeter thyroid nodules described above. 3. Recommend continued annual surveillance.
== END 2023-09-29 09:44 | disposition home or self-care (01) ==
LOC: RAD 09:45
PROVIDERS: PCP Family Medicine; Visit Provider Internal Medicine
DX: E04.2 Nontoxic multinodular goiter (principal); R94.6 Abnormal results of thyroid function studies
CPT/HCPCS: 76536

== ENCOUNTER → 2023-10-20 10:48 | Outpatient (BNVA) | payer MEDICARE, MEDICAID, SELFPAY | PROVIDERS: PCP Family Medicine; Referring Provider Internal Medicine; Visit Provider Internal Medicine | DX: E04.2 Nontoxic multinodular goiter (principal); E11.9 Type 2 diabetes mellitus without complications; R94.6 Abnormal results of thyroid function studies; E66.9 Obesity, unspecified; E88.810 Metabolic syndrome | CPT/HCPCS: 80053; 80061; 82043; 83036; 84439; 84443 ==

== ENCOUNTER → 2023-11-13 12:04 | Outpatient (BNVA) | payer MEDICARE, MEDICAID, SELFPAY | PROVIDERS: PCP Family Medicine; Visit Provider Internal Medicine | DX: E11.9 Type 2 diabetes mellitus without complications (principal); E04.2 Nontoxic multinodular goiter; E66.9 Obesity, unspecified; Z68.41 Body mass index [BMI] 40.0-44.9, adult; Z79.84 Long term (current) use of oral hypoglycemic drugs; Z79.85 Long-term (current) use of injectable non-insulin antidiabetic drugs | CPT/HCPCS: 99214 ==

== ENCOUNTER → 2024-02-03 09:45 | Outpatient (BNVA) | payer MEDICARE, MEDICAID, SELFPAY | PROVIDERS: PCP Family Medicine; Referring Provider Family Medicine; Visit Provider Specialist | DX: G43.711 Chronic migraine without aura, intractable, with status migrainosus (principal); G61.81 Chronic inflammatory demyelinating polyneuritis; R03.0 Elevated blood-pressure reading, without diagnosis of hypertension | CPT/HCPCS: 99204; 99205 ==

== ENCOUNTER 2024-03-23 13:55 | Outpatient (CLI) | payer MEDICARE, MEDICAID, SELFPAY | END 2024-03-23 13:56 | disposition home or self-care (01) | LOC: SLEEP 13:56 | PROVIDERS: PCP Family Medicine; Visit Provider Specialist | DX: G43.711 Chronic migraine without aura, intractable, with status migrainosus (principal); G61.81 Chronic inflammatory demyelinating polyneuritis; R03.0 Elevated blood-pressure reading, without diagnosis of hypertension | CPT/HCPCS: 99214; G0399 ==

== ENCOUNTER → 2024-03-25 11:43 | Outpatient (BNVA) | payer MEDICARE, MEDICAID, SELFPAY | PROVIDERS: PCP Family Medicine; Visit Provider Specialist | DX: G61.81 Chronic inflammatory demyelinating polyneuritis (principal) | CPT/HCPCS: 95911; 95913 ==

== ENCOUNTER → 2024-05-06 09:30 | Outpatient (BNVA) | payer MEDICARE, MEDICAID, SELFPAY | PROVIDERS: PCP Family Medicine; Visit Provider Internal Medicine | DX: E11.9 Type 2 diabetes mellitus without complications (principal); E04.2 Nontoxic multinodular goiter; E55.9 Vitamin D deficiency, unspecified; E50.9 Vitamin A deficiency, unspecified; E66.9 Obesity, unspecified; G47.33 Obstructive sleep apnea (adult) (pediatric); Z79.84 Long term (current) use of oral hypoglycemic drugs; Z79.85 Long-term (current) use of injectable non-insulin antidiabetic drugs; Z68.42 Body mass index [BMI] 45.0-49.9, adult | CPT/HCPCS: 36415; 80053; 80061; 82044; 82306; 83036; 84439; 84443; 99215 ==

== ENCOUNTER → 2024-05-21 10:30 | Outpatient (BNVA) | payer MEDICARE, MEDICAID, SELFPAY | PROVIDERS: PCP Family Medicine; Referring Provider Family Medicine; Visit Provider Specialist | DX: G43.711 Chronic migraine without aura, intractable, with status migrainosus (principal); R03.0 Elevated blood-pressure reading, without diagnosis of hypertension; G61.81 Chronic inflammatory demyelinating polyneuritis | CPT/HCPCS: 99214 ==

== ENCOUNTER 2024-08-26 09:49 | Outpatient (CLI) | payer MEDICARE, MEDICAID, SELFPAY ==
[2024-08-26 10:46] LABS: Estmated Average Glucose 103; Hemoglobin A1C 5.2 % (4.0-6.0)
[2024-08-26 10:59] LABS: Creatinine Urine, Random 72 mg/dL (28-217); Microalbum Creatinine Ratio Ur 14 mg/dL (0-20); Microalbumin Random Urine 1 ug/dL (0-20)
[2024-08-26 11:28] LABS: 25 Hydroxy Vitamin D 50 ng/mL (30-100); Alanine Aminotransferase 31 U/L (0-33); Albumin Level 4.3 g/dL (3.5-5.2); Alkaline Phosphatase 62 U/L (35-105); Anion Gap 14.3 (5-19); Aspartate Amino Transferase 34 U/L (0-32); Blood Urea Nitrogen 14 mg/dL (6-20); Carbon Dioxide 31 mmol/L (22-29); Chloride 103 mmol/L (98-107); Chol HDL Ratio 2.85 mg/dL (0.0-4.40); Cholesterol 131 mg/dL (0-200); Globulin 3.3 g/dL (1.3-4.6); Glomerular Filtration Rate 105.4 mL/min (90-130); Glucose 69 mg/dL (65-115); HDL Cholesterol 46 mg/dL (60-100); LDL Cholesterol Calculated 68 mg/dL (50-129); LDL HDL Ratio 1.48 RATIO (0.00-3.22); Osmolality Calculated 297 mOsm/kg (285-295); Potassium 4.3 mmol/L (3.5-5.1); Sodium 144 mmol/L (136-145); Thyroid Stimulating Hormone 4.65 uIU/mL (0.27-4.20); Total Bilirubin 0.6 mg/dL (0.15-1.2); Total Protein 7.6 g/dL (6.6-8.7); Triglycerides 86 mg/dL (0-150)
[2024-08-26 11:53] LABS: Free T4 Free Thyroxine 1.27 ng/dL (0.82-1.77)
== END 2024-08-26 09:50 | disposition home or self-care (01) ==
LOC: LAB 09:54
PROVIDERS: PCP Family Medicine; Visit Provider Internal Medicine
DX: E55.9 Vitamin D deficiency, unspecified (principal); E50.9 Vitamin A deficiency, unspecified; E11.9 Type 2 diabetes mellitus without complications; E04.2 Nontoxic multinodular goiter; R63.5 Abnormal weight gain; G43.711 Chronic migraine without aura, intractable, with status migrainosus; R03.0 Elevated blood-pressure reading, without diagnosis of hypertension; G61.81 Chronic inflammatory demyelinating polyneuritis
CPT/HCPCS: 17110; 36415; 80053; 80061; 82044; 82306; 83036; 84439; 84443; 99203; 99214

== ENCOUNTER → 2024-08-30 11:49 | Outpatient (BNVA) | payer MEDICARE, MEDICAID, SELFPAY | PROVIDERS: PCP Family Medicine; Visit Provider Internal Medicine | DX: E04.2 Nontoxic multinodular goiter (principal); E66.9 Obesity, unspecified; E55.9 Vitamin D deficiency, unspecified | CPT/HCPCS: 99214 ==

== ENCOUNTER 2024-09-07 11:42 | Outpatient (CLI) | payer MEDICARE, MEDICAID, SELFPAY ==
--- NOTE | 2024-09-07 12:30 | MR_ITS ---
WS: [id number] MRI BRAIN WITHOUT CONTRAST HISTORY: G43.711 - Chronic migraine without aura, intractable, COMPARISON: None available. TECHNIQUE: Diffusion imaging, multiplanar T1, T2 and FLAIR imaging obtained. No evidence for acute infarct or hemorrhage. Fox-white matter differentiation is normal. LEFT temporal lobe cortex low signal mass on the T2, FLAIR and T1 sequences measures 6 x 8 x 9 mm. Decreased signal on the susceptibility imaging. No prior infarct. Minimal small vessel disease in the subcortical white matter. No cerebellar infarct. Ventricles and extra-axial spaces are normal. No inferior displacement of cerebellar tonsils. The sella turcica and pituitary gland are unremarkable. Dural venous sinuses and [place] of [place] demonstrate no abnormality on this unenhanced studies. Paranasal sinuses: Clear. Mastoid air cells: Normal. Calvarium and scalp: Intact. MR/MR head wo con* [id number] IMPRESSION: 1. No acute infarct or edema. 2. LEFT temporal lobe cortical low signal mass measures 6 x 8 x 9 mm. Favor th is is probably a venous malformation. Recommend follow-up MRI brain with contra st. 3. No hippocampal atrophy.
== END 2024-09-07 11:43 | disposition home or self-care (01) ==
PROVIDERS: PCP Family Medicine; Visit Provider Specialist
DX: G43.711 Chronic migraine without aura, intractable, with status migrainosus (principal); R42 Dizziness and giddiness; R93.0 Abnormal findings on diagnostic imaging of skull and head, not elsewhere classified
CPT/HCPCS: 70551

== ENCOUNTER 2024-09-23 10:55 | Outpatient (CLI) | payer MEDICAID, MEDICARE, SELFPAY ==
--- NOTE | 2024-09-23 11:03 | US_ITS ---
WS: [id number] THYROID ULTRASOUND HISTORY: THYROID NODULES COMPARISON: 09/29/2023 Right lobe: 1.1 cm x 1.9 cm x 3.7 cm (w x ap x l). Volume: 3.5 cm3. Mildly heterogeneous gland with a few scattered colloid nodules. No solid mass or echogenic foci. Left lobe: 1.3 cm x 1.1 cm x 3.3 cm (w x ap x l). Volume: 2.3 cm3. Normal sized gland. Mild coarse echotexture with a few scattered areas of heterogeneity but no mass or nodule. No increased vascularity. Isthmus: 0.4 cm. US/US thyroid [id number] IMPRESSION: 1. TI-RADS 2; no suspicious nodules or microcalcifications. No FNA recommended . No follow-up necessary based upon the ultrasound findings.
== END 2024-09-23 10:56 | disposition home or self-care (01) ==
LOC: RAD 10:59
PROVIDERS: PCP Family Medicine; Visit Provider Internal Medicine
DX: E04.2 Nontoxic multinodular goiter (principal); R93.89 Abnormal findings on diagnostic imaging of other specified body structures
CPT/HCPCS: 76536

== ENCOUNTER → 2024-09-24 11:38 | Outpatient (BNVA) | payer MEDICARE, MEDICAID, SELFPAY | PROVIDERS: PCP Family Medicine; Visit Provider Specialist | DX: G43.711 Chronic migraine without aura, intractable, with status migrainosus (principal); R03.0 Elevated blood-pressure reading, without diagnosis of hypertension; G61.81 Chronic inflammatory demyelinating polyneuritis; G93.9 Disorder of brain, unspecified | CPT/HCPCS: 64615; 99214; J0585 ==

== ENCOUNTER → 2024-11-03 13:26 | Outpatient (BNVA) | payer MEDICARE, MEDICAID, SELFPAY | PROVIDERS: PCP Family Medicine; Referring Provider Internal Medicine; Visit Provider Family Medicine | DX: R63.5 Abnormal weight gain (principal); E55.9 Vitamin D deficiency, unspecified | CPT/HCPCS: 82306; 84439; 84443 ==

== ENCOUNTER → 2024-12-24 09:52 | Outpatient (BNVA) | payer MEDICARE, MEDICAID, SELFPAY | PROVIDERS: PCP Family Medicine; Visit Provider Specialist | DX: G43.711 Chronic migraine without aura, intractable, with status migrainosus (principal) | CPT/HCPCS: 64615; J0585; J9999 ==

== ENCOUNTER → 2025-02-17 09:55 | Outpatient (BNVA) | payer MEDICARE, MEDICAID, SELFPAY | PROVIDERS: PCP Family Medicine; Referring Provider Internal Medicine; Visit Provider Internal Medicine | DX: E55.9 Vitamin D deficiency, unspecified (principal); R63.5 Abnormal weight gain | CPT/HCPCS: 82306; 84439; 84443 ==

== ENCOUNTER → 2025-03-02 10:14 | Outpatient (BNVA) | payer MEDICARE, MEDICAID, SELFPAY | PROVIDERS: PCP Family Medicine; Visit Provider Internal Medicine | DX: E11.9 Type 2 diabetes mellitus without complications (principal); E04.2 Nontoxic multinodular goiter; E88.819 Insulin resistance, unspecified; E66.9 Obesity, unspecified; E55.9 Vitamin D deficiency, unspecified | CPT/HCPCS: 99214 ==

== ENCOUNTER → 2025-03-10 10:51 | Outpatient (BNVA) | payer MEDICARE, MEDICAID, SELFPAY | PROVIDERS: PCP Family Medicine; Referring Provider Internal Medicine; Visit Provider Internal Medicine | DX: E11.9 Type 2 diabetes mellitus without complications (principal); R63.5 Abnormal weight gain; E66.9 Obesity, unspecified | CPT/HCPCS: 82530; 82570 ==

== ENCOUNTER → 2025-03-31 08:54 | Outpatient (BNVA) | payer MEDICARE, MEDICAID, SELFPAY | PROVIDERS: PCP Family Medicine; Visit Provider Specialist | DX: G43.711 Chronic migraine without aura, intractable, with status migrainosus (principal) | CPT/HCPCS: 64615; J0585; J9999 ==

== ENCOUNTER 2025-05-17 08:41 | Oncology outpatient (recurring) (ONCR) | payer MEDICARE, MEDICAID, SELFPAY ==
[2025-05-17 09:14] VITALS: BP 144/92; PULSE 77; RESP 16; TEMP 36.6; O2SAT 93
[2025-05-17] MEDS: diphenhydrAMINE 50 mg/mL SDV 1mL 25 MG IVP (09:25)
[2025-05-17] MEDS: ondansetron 2 mg/ML SDV 2 mL 4 MG IVP ×2 (09:28→10:43)
[2025-05-17 11:39] VITALS: BP 151/86; PULSE 73; RESP 16; TEMP 36.3; O2SAT 92
== END 2025-05-27 23:59 | disposition home or self-care (01) ==
LOC: ONCMED 08:43
PROVIDERS: PCP Family Medicine; Visit Provider Specialist
DX: G43.711 Chronic migraine without aura, intractable, with status migrainosus (principal); Z79.899 Other long term (current) drug therapy
CPT/HCPCS: 96374; 96375; 96376; J1110; J1200; J2405

== ENCOUNTER 2025-06-22 09:49 | Outpatient (CLI) | payer MEDICARE, MEDICAID, SELFPAY ==
--- NOTE | 2025-06-22 10:15 | MR_ITS ---
WS: [id number] MRI HEAD WITH CONTRAST TECHNIQUE: Sagittal T1, T2 axial, T2 axial FLAIR, axial susceptibility weighted imaging, axial diffusion weighted images, and coronal T2 images were obtained. Pre and post-T1 axial and post T1 coronal images. ADC and FSPGR images. CLINICAL INFORMATION: Small Lesion COMPARISON: 09/07/2024 FINDINGS: No evidence of restricted diffusion to suggest acute ischemia. Ventricular system and basilar cisterns are patent. An extra-axial enhancing lesion corresponding to the prior MRI findings. Lesion is slightly irregular with no underlying edema and decreased signal on T2 imaging. This measures approximately 7.9 x 8.0 mm. Lesion demonstrates significant vascularity but appears dural based with some heterogeneity. Findings suspicious for meningioma but also consider atypical grade 2 or 3 meningiomas. Hemangiopericytoma/solitary fibrous tumor is an additional consideration with this imaging appearance. Minimal small vessel changes. Normal posterior fossa. Normal vascular flow voids at the skull base. No extra-axial fluid collections. Paranasal sinuses and mastoid air cells are well aerated. Normal optic chiasm and pituitary infundibulum. MR/MR head wo/w con [id number] IMPRESSION: 1. Enhancing extra-axial lesion described above with somewhat irregular and hi ghly vascular appearance. Differential considerations include meningioma, this includes grade 2 or 3 meningiomas atypical. Additional consideration would be a hemangiopericytoma/solitary fibrous tumor considering vascularity and slight i rregularity. No underlying edema. Dural based metastasis not excluded if histor y of malignancy otherwise unlikely. 2. No other acute findings.
[2025-06-22] MEDS: gadobenate dimeglumine 20 mL vial IV (10:27)
== END 2025-06-22 09:50 | disposition home or self-care (01) ==
LOC: RAD 09:51
PROVIDERS: PCP Family Medicine; Visit Provider Specialist
DX: R90.0 Intracranial space-occupying lesion found on diagnostic imaging of central nervous system (principal); G93.89 Other specified disorders of brain; D32.9 Benign neoplasm of meninges, unspecified; D48.19 Other specified neoplasm of uncertain behavior of connective and other soft tissue
CPT/HCPCS: 70553

== ENCOUNTER → 2025-06-30 10:09 | Outpatient (BNVA) | payer MEDICARE, MEDICAID, SELFPAY | PROVIDERS: PCP Family Medicine; Visit Provider Specialist | DX: G43.711 Chronic migraine without aura, intractable, with status migrainosus (principal); G93.9 Disorder of brain, unspecified; R03.0 Elevated blood-pressure reading, without diagnosis of hypertension; G61.81 Chronic inflammatory demyelinating polyneuritis | CPT/HCPCS: 64615; 99214; J0585; J9999 ==

== ENCOUNTER → 2025-07-07 09:37 | Outpatient (BNVA) | payer MEDICARE, MEDICAID, SELFPAY | PROVIDERS: PCP Family Medicine; Referring Provider Family Medicine; Visit Provider Nurse Practitioner Family | DX: M47.816 Spondylosis without myelopathy or radiculopathy, lumbar region (principal) | CPT/HCPCS: 99204; 99214 ==

== ENCOUNTER → 2025-07-13 07:28 | Outpatient (BNVA) | payer MEDICARE, MEDICAID, SELFPAY | PROVIDERS: PCP Family Medicine; Visit Provider Nurse Practitioner Family | DX: M79.18 Myalgia, other site (principal); M47.816 Spondylosis without myelopathy or radiculopathy, lumbar region | CPT/HCPCS: 20553; 99214; J1010; J3490 ==

== ENCOUNTER 2025-07-26 08:54 | Outpatient (RCR) | payer MEDICARE, MEDICAID, SELFPAY | END 2025-07-27 23:59 | disposition home or self-care (01) | LOC: MPT 08:54 | PROVIDERS: PCP Family Medicine; Visit Provider Nurse Practitioner Family | DX: M54.9 Dorsalgia, unspecified (principal) | CPT/HCPCS: 97110; 97140; 97162 ==

== ENCOUNTER → 2025-07-27 09:34 | Outpatient (BNVA) | payer MEDICARE, MEDICAID, SELFPAY | PROVIDERS: PCP Family Medicine; Visit Provider Nurse Practitioner Family | DX: M47.26 Other spondylosis with radiculopathy, lumbar region (principal); R20.0 Anesthesia of skin; R20.2 Paresthesia of skin | CPT/HCPCS: 99214 ==